=== PATIENT | female | born 1950 | race Caucasian/White ===

== ENCOUNTER 2019-09-21 15:57 | Emergency (ER) | payer OTHER ==
[~2019-09-21] VITALS: Ht 149.9 cm; Wt 57.2 kg
[2019-09-21 16:02] VITALS: Ht 149.9 cm; Wt 57.2 kg
[2019-09-21 16:25] LABS: BASOPHIL % 0.4 % (0-2); PLATELET COUNT 161 x10^3mcL (130-400); RED CELL DISTRIBUTION WIDTH 13.1 % (11.5-14.5)
[2019-09-21 16:49] LABS: CALCIUM 8.8 mg/dL (8.5-10.1); CARBON DIOXIDE 26.5 mmol/L (21-32); CHLORIDE SERUM 110 mmol/L (98-107); CREATININE SERUM 0.6 mg/dL (0.6-1.0); GFR1 > 60 mL/min; GLUCOSE SERUM 110 mg/dL (74-106); SODIUM SERUM 145 mmol/L (136-145)
[2019-09-21 16:53] LABS: ALBUMIN 3.6 g/dL (3.4-5.0); ALKALINE PHOSPHATASE 79 U/L (46-116); ALT/SGPT 24 U/L (14-59); AST/SGOT 18 U/L (15-37); LIPASE 178 IU/L (73-393); TOTAL PROTEIN, SERUM 7.4 g/dL (6.4-8.2)
[2019-09-21 17:32] LABS: BILIRUBIN TOTAL 0.23 mg/dL (0.20-1.00)
[2019-09-21 20:56] VITALS: BP 141/57
== END 2019-09-21 20:56 | disposition home or self-care (01) ==
LOC: ED 15:57
PROVIDERS: Emergency Medicine
DX: B34.9 Viral infection, unspecified (principal); M19.90 Unspecified osteoarthritis, unspecified site
CPT/HCPCS: 36415; 87804

== ENCOUNTER 2020-05-25 21:36 | Emergency (ER) | payer OTHER ==
[~2020-05-25] VITALS: Ht 152.4 cm; Wt 72.6 kg
[2020-05-25 21:46] VITALS: Ht 152.4 cm; Wt 72.6 kg
[2020-05-26 00:45] VITALS: BP 132/55
== END 2020-05-26 00:45 | disposition home or self-care (01) ==
LOC: ED 21:36
DX: S16.1XXA Strain of muscle, fascia and tendon at neck level, initial encounter (principal); S63.502A Unspecified sprain of left wrist, initial encounter; S00.11XA Contusion of right eyelid and periocular area, initial encounter; S39.012A Strain of muscle, fascia and tendon of lower back, initial encounter; J45.909 Unspecified asthma, uncomplicated; V49.49XA Driver injured in collision with other motor vehicles in traffic accident, initial encounter; Y93.I9 Activity, other involving external motion; Y92.413 State road as the place of occurrence of the external cause; Y99.8 Other external cause status
CPT/HCPCS: J1885; Q0092